=== PATIENT | female | born 1970 | race Caucasian/White ===

== ENCOUNTER → 2021-06-01 | Outpatient (REF) | LOC: M PLAIMG 11:08 | PROVIDERS: ATTEND Internal Medicine | DX: M54.50 Low back pain, unspecified (principal) ==

== ENCOUNTER → 2024-02-27 | Outpatient (REF) | LOC: M PLAIMG 13:20 | PROVIDERS: ATTEND Internal Medicine | DX: R52 Pain, unspecified (principal) ==